=== PATIENT | female | born 1985 ===

== ENCOUNTER 2017-08-30 01:27 | Emergency (ER) | payer SELFPAY ==
[2017-08-30 01:56] VITALS: BP 159/99; PULSE 98; RESP 18; TEMP 98.3; O2SAT 100
--- NOTE | 2017-08-30 02:26 | ED PDOC ---
HPI: General Adult Time Seen by Provider: 08/30/17 01:53 Chief Complaint (Nursing): Female Genitourinary History Per: Patient Additional Complaint(s): Pt. states she is concerned about being . States she had an IUD placed 1.5 years ago in [place] and states since then she's had intermittent light vaginal bleeding every month lasting for 3-4 days. Pt. states she also gets intermittent pelvic pain along with the IUD and currently does not have it. Denies dysuria, hematuria, fever, weakness, N/V/D. Past Medical History Reviewed: Historical Data, Nursing Documentation, Vital Signs Vital Signs: Last Vital Signs Temp 98.3 F 08/30/17 01:52 Pulse 98 H 08/30/17 01:52 Resp 18 08/30/17 01:52 BP 159/99 H 08/30/17 01:52 Pulse Ox 100 08/30/17 02:27 - Family History Family History: States: No Known Family Hx - Allergies Allergies/Adverse Reactions: Allergies Allergy/AdvReac Type Severity Reaction Status Date / Time No Known Allergies Allergy Verified 08/30/17 01:52 Review of Systems ROS Statement: Except As Marked, All Systems Reviewed And Found Negative Genitourinary Female: Positive for: Vaginal Bleeding, Pelvic Pain Physical Exam - Physical Exam Appears: Positive for: Well, Non-toxic, No Acute Distress Skin: Positive for: Normal Color, Warm. Negative for: Rash Eye Exam: Positive for: Normal appearance Gastrointestinal/Abdominal: Positive for: Normal Exam, Bowel Sounds, Soft. Negative for: Tenderness Neurologic/Psych: Positive for: Alert, Oriented - Laboratory Results Urine POC: Negative - ECG O2 Sat by Pulse Oximetry: 100 - Progress ED Course And Treament: UA ordered. Pt. informed of negative test and left prior to getting UA done. Disposition - Clinical Impression Clinical Impression: test negative - Patient ED Disposition Is Patient to be Admitted: No - Disposition Disposition: Eloped Disposition Time: 02:45 Condition: UNKNOWN
== END 2017-08-30 02:45 | disposition left against medical advice (07) ==
LOC: H.ER 01:27
DX: Z32.02 Encounter for pregnancy test, result negative (principal)